=== PATIENT | male | born 2000 | race Caucasian/White ===

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

== ENCOUNTER 2021-07-14 18:20 | Emergency (ER) | payer OTHER ==
[2021-07-14 18:34] VITALS: BP 141/87; PULSE 89; TEMP 98.3; BMI 37.9
[2021-07-14] MEDS ORDERED: ACETAMINOPHEN 500 MG TABLET (FP) PO ONE (19:58)
[2021-07-14] MEDS ORDERED: ACETAMINOPHEN 500 MG TABLET (FP) ONE (20:06)
[2021-07-14] MEDS ORDERED: DIPHTH,PERTUSS(ACELL),TET 0.5 ML DISP.SYRIN IM ONE ×2 (20:20→20:41)
[2021-07-14 20:48] LABS: BASO % 0.8 % (0-2.0); EOS % 1.1 % (0-4.5); HEMATOCRIT 42.3 % (35.4-49); HEMOGLOBIN 14.4 GM/dL (11.7-16.9); LYMPH % 26.3 % (8-40); MCHC 34.1 g/dl (32.0-35.9); MEAN CELL VOLUME 87.9 fl (80-96); MEAN PLT VOLUME 9.2 fl (7.5-11.1); MONO % 7.9 % (3.8-10.2); NEUT % 63.9 % (42.8-82.8); PLATELET COUNT 245 10^3/uL (134-434); RBC 4.81 M/mm3 (4.00-5.60); RDW 13.3 % (11.9-15.9); WHITE BLOOD COUNT 7.9 K/mm3 (4.0-10.0)
[2021-07-14 21:04] LABS: CHLORIDE 108 mmol/L (98-107); SODIUM 140 mmol/L (136-145)
[2021-07-14 21:06] LABS: ALBUMIN 4.4 g/dl (3.4-5.0); ANION GAP 5 MMOL/L (8-16); BLOOD UREA NITROGEN 10.9 mg/dL (7-18); CALCIUM 8.9 mg/dL (8.5-10.1); CO2 27 mmol/L (21-32); GLUCOSE,RANDOM 97 mg/dL (74-106)
[2021-07-14 21:09] LABS: CREATININE 0.9 mg/dL (0.55-1.3); SGPT/ALT 21 U/L (13-61)
[2021-07-14 21:10] LABS: SGOT/AST 11 U/L (15-37)
[2021-07-14 21:11] LABS: BILIRUBIN,TOTAL 0.3 mg/dL (0.2-1); TOT PROT 7.2 g/dl (6.4-8.2)
[2021-07-14 21:12] LABS: ALK PHOS 62 U/L (45-117)
== END 2021-07-14 21:45 | disposition home or self-care (01) ==
LOC: JER 18:20
PROC: 3E0234Z Introduction of Serum, Toxoid and Vaccine into Muscle, Percutaneous Approach (ICD-10-PCS; principal; 2021-07-14)
DX: R55 Syncope and collapse (principal); R51.9 Headache, unspecified
CPT/HCPCS: 36415; 70450-TC; 70486-TC; 80053; 82550; 84484; 85025; 90471; 90715; 93005; 93010; 99285-25

== ENCOUNTER 2023-06-05 11:35 | Emergency (ER) | payer OTHER ==
[2023-06-05 11:44] VITALS: BP 117/72; PULSE 90; RESP 18; TEMP 97.8; BMI 34.2
[2023-06-05] MEDS ORDERED: ACETAMINOPHEN 1000 MG/100 ML BAG IVPB ONE (12:03)
[2023-06-05] MEDS ORDERED: SODIUM CHLORIDE 1,000 ML IV STA (12:03)
[2023-06-05] MEDS ORDERED: ACETAMINOPHEN INJECTION 100 ML IVPB ONE (12:34)
[2023-06-05 13:32] LABS: BASO % 0.3 % (0-2.0); EOS % 0.6 % (0-4.5); HEMATOCRIT 44.5 % (35.4-49); HEMOGLOBIN 15.3 GM/dL (11.7-16.9); LYMPH % 10.7 % (8-40); MCH 29.8 pg (25.7-33.7); MCHC 34.5 g/dl (32.0-35.9); MEAN CELL VOLUME 86.5 fl (80-96); MEAN PLT VOLUME 8.3 fl (7.5-11.1); MONO % 6.5 % (3.8-10.2); NEUT % 81.9 % (42.8-82.8); PLATELET COUNT 230 10^3/uL (134-434); RBC 5.15 M/mm3 (4.00-5.60); RDW 13.2 % (11.9-15.9); WHITE BLOOD COUNT 9.8 K/mm3 (4.0-10.0)
[2023-06-05 13:34] LABS: EPI CELLS 23 /uL (0-25.1); HYALINE CASTS 6 /uL (0-3.1); URINE APPEARANCE CLEAR; URINE BACTERIA 52 /uL (0-1359); URINE BILIRUBIN NEGATIVE (NEGATIVE); URINE COLOR YELLOW; URINE GLUCOSE (UA) NEGATIVE (NEGATIVE); URINE KETONE NEGATIVE (NEGATIVE); URINE LEUK ESTERASE 2+ (NEGATIVE); URINE NITRITE NEGATIVE (NEGATIVE); URINE PROTEIN NEGATIVE (NEGATIVE); URINE RBC 98 /uL (0-23.9); URINE UROBILINOGEN 0.2 mg/dL (0.2-1.0); URINE WBC 139 /uL (0-25.8)
[2023-06-05 13:45] LABS: POTASSIUM 4.7 mmol/L (3.5-5.1)
[2023-06-05 13:48] LABS: ALBUMIN 4.3 g/dl (3.4-5.0)
[2023-06-05 13:49] LABS: BLOOD UREA NITROGEN 9.9 mg/dL (7-18)
[2023-06-05 13:51] LABS: CREATININE 0.8 mg/dL (0.55-1.3)
[2023-06-05 13:53] LABS: BILIRUBIN,TOTAL 0.3 mg/dL (0.2-1); TOT PROT 7.3 g/dl (6.4-8.2)
== END 2023-06-05 15:26 | disposition home or self-care (01) ==
LOC: JERFT 11:35
PROC: 3E033GC Introduction of Other Therapeutic Substance into Peripheral Vein, Percutaneous Approach (ICD-10-PCS; principal; 2023-06-05)
PROC: 3E0337Z Introduction of Electrolytic and Water Balance Substance into Peripheral Vein, Percutaneous Approach (ICD-10-PCS; 2023-06-05)
DX: N30.01 Acute cystitis with hematuria (principal); R30.9 Painful micturition, unspecified
CPT/HCPCS: 36415; 76775-TC; 80053; 81003; 82550; 85025; 87086; 99284-25